=== PATIENT | female | born 1990 | race Caucasian/White ===

== ENCOUNTER 2016-10-03 07:13 | Emergency (ER) | payer MEDICAID ==
[2016-10-03 07:29] VITALS: BP 106/56
--- NOTE | 2016-10-03 07:54 | ER Document Report ---
ED Respiratory Problem - General Chief Complaint: Cough Stated Complaint: COUGH Time seen by provider: 07:49 Mode of Arrival: Ambulatory Information source: Patient, Parent Notes: 26 yo female presents to ed for productive cough for over a week, Denies fever but has been sweating exhausted. TRAVEL OUTSIDE OF THE [place] IN LAST 30 DAYS: No - HPI Patient complains to provider of: Cough Onset: Other - couple weeks Duration: Continuous Initiating Event: URI Quality of pain: No pain Severity: Moderate Pain Level: 3 Short of Breath: Mild Cough: Productive Sputum amount: Moderate Sputum color: Yellow Sputum consistency: Thick, Thin Associated symptoms: Cough, Hoarseness, PND Similar symptoms previously: Yes Recently seen / treated by doctor: No - Related Data Allergies/Adverse Reactions: No Known Allergies Allergy (Verified 10/03/16 07:24) Past Medical History - General Information source: Patient Last Menstrual Period: 09/25/16 - Social History Smoking Status: Current Every Day Smoker Cigarette use (# per day): Yes - 1/2 ppd Chew tobacco use (# tins/day): No Smoking Education Provided: Yes - less than a min Frequency of alcohol use: Social Drug Abuse: Cocaine, Other - methadone Lives with: Family Family History: Reviewed & Not Pertinent Patient has suicidal ideation: No Patient has homicidal ideation: No - Past Medical History Cardiac Medical History: Reports: None Pulmonary Medical History: Reports: None EENT Medical History: Reports: None Neurological Medical History: Reports: None Endocrine Medical History: Reports: None Renal/ Medical History: Reports: None Malignancy Medical History: Reports: None GI Medical History: Reports: None Musculoskeltal Medical History: Reports None Skin Medical History: Reports None Psychiatric Medical History: Reports: None Traumatic Medical History: Reports: None Infectious Medical History: Reports: None Past Surgical History: Reports: Hx Breast Surgery - reduction - Immunizations Hx Diphtheria, Pertussis, Tetanus Vaccination: No Review of Systems - Review of Systems Constitutional: Malaise, Recent illness. denies: Fever EENT: Sinus discharge, Other - hoarseness Cardiovascular: No symptoms reported Respiratory: Cough, Sputum - thick yellow Gastrointestinal: No symptoms reported Genitourinary: No symptoms reported Female Genitourinary: No symptoms reported Musculoskeletal: No symptoms reported Skin: No symptoms reported Hematologic/Lymphatic: No symptoms reported Neurological/Psychological: No symptoms reported -: Yes All other systems reviewed and negative Physical Exam - Vital signs Vitals: Temp Pulse Resp BP Pulse Ox 98.4 F 93 18 106/56 L 96 10/03/16 07:28 10/03/16 07:28 10/03/16 07:28 10/03/16 07:28 10/03/16 07:28 Interpretation: Normal - General General appearance: Appears well, Alert - HEENT Head: Normocephalic, Atraumatic Eyes: Normal Pupils: PERRL Ears: Normal External canal: Normal Tympanic membrane: Normal Sinus: Normal Nasal: Purulent discharge, Swelling Mucous membranes: Normal Pharynx: Post nasal drainage Neck: Normal - Respiratory Respiratory status: No respiratory distress Chest status: Nontender Breath sounds: Productive cough Chest palpation: Normal - Cardiovascular Rhythm: Regular Heart sounds: Normal auscultation Murmur: No - Abdominal Inspection: Normal Distension: No distension Bowel sounds: Normal Tenderness: Nontender Organomegaly: No organomegaly - Back Back: Normal, Nontender - Extremities General upper extremity: Normal inspection, Nontender, Normal color, Normal ROM , Normal temperature General lower extremity: Normal inspection, Nontender, Normal color, Normal ROM , Normal temperature, Normal weight bearing. No: Rosey's sign - Neurological Neuro grossly intact: Yes Cognition: Normal Orientation: AAOx4 Dany Coma Scale Eye Opening: Spontaneous Dany Coma Scale Verbal: Oriented Dany Coma Scale Motor: Obeys Commands [place] Coma Scale Total: 15 Speech: Normal Motor strength normal: LUE, RUE, LLE, RLE Sensory: Normal - Psychological Associated symptoms: Normal affect, Normal mood - Skin Skin Temperature: Warm Skin Moisture: Dry Skin Color: Normal Course - Re-evaluation Re-evalutation: 10/03/16 08:46 discussed xray with patient. will discharge home on augmentin as she is on Methadone - Vital Signs Vital signs: Temp Pulse Resp BP Pulse Ox 98.4 F 93 18 106/56 L 96 10/03/16 07:28 10/03/16 07:28 10/03/16 07:28 10/03/16 07:28 10/03/16 07:28 - Diagnostic Test Radiology reviewed: Image reviewed, Reports reviewed Discharge - Discharge Clinical Impression: Pneumonia Qualifiers: Pneumonia type: due to unspecified organism Laterality: bilateral Lung location : unspecified part of lung Qualified Code(s): J18.9 - Pneumonia, unspecified organism Condition: Stable Disposition: HOME, SELF-CARE Instructions: Family Physicians / Practices Additional Instructions: PNEUMONIA: Your examination indicates that you have pneumonia. This is an infection of the lung tissue, usually caused by bacteria or a virus. Symptoms include cough, fever, shaking chills, chest pain, shortness of breath, and coughing up bloody sputum. Treatment for bacterial pneumonia includes rest, antibiotics for 10 to 14 days, increasing your clear liquid intake, a cool mist humidifier at your bedside, and fever medication. Often, a repeat chest X-ray is performed in a few weeks--even if you feel better--to ascertain whether the infection has completely resolved and no underlying lung problem is present. You should call the physician if you develop persistent vomiting, high fever that does not respond to fever medication, increasing shortness of breath , confusion, or lethargy. Also, failure to improve within two to three days is an indication for re-examination. DOXYCYCLINE: Doxycycline (Vibramycin, Doryx) is an antibiotic of the tetracycline family. This type of drug is useful for infections of the respiratory tract and genital tract, and is sometimes used for intestinal infections. Unlike most tetracyclines, doxycycline can be taken with food. It is longer acting, and (usually) less prone to side effects than regular tetracycline. Tetracycline antibiotics can stain immature teeth and SHOULD NOT BE TAKEN BY CHILDREN, NURSING MOTHERS, OR WOMEN. Tetracyclines can make you more prone to sunburn. Abdominal cramping, nausea, and diarrhea are occasional side effects. Women may experience vaginal yeast infections. Call the doctor at once if you develop hives, itching, shortness of breath , or lightheadedness. USE OF ACETAMINOPHEN (Tylenol): Acetaminophen may be taken for pain relief or fever control. It's much safer than aspirin, offering a wider range of "safe" dosages. It is safe during . Some brand names are Tylenol, Panadol, Datril, Anacin 3, Tempra, and Liquiprin. Acetaminophen can be repeated every four hours. The following are maximum recommended dosages: WEIGHT Dose Drops Elixir Chewable( 80mg) (LBS.) drprs=droppers tsp=teaspoon 6 40 mg 0.4 ml (1/2) 6-11 80 mg 0.8 ml (full) tsp 1 tab 12-16 120 mg 1 1/2 drprs 3/4 tsp 1 1/2 tabs 17-23 160 mg 2 drprs 1 tsp 2 tabs 24-30 240 mg 3 drprs 1 1/2 tsp 3 tabs 30-35 320 mg 2 tsp 4 tabs 36-41 360 mg 2 1/4 tsp 4 1/2 tabs 42-47 400 mg 2 1/2 tsp 5 tabs 48-53 480 mg 3 tsp 6 tabs 54-59 520 mg 3 1/4 tsp 6 1/2 tabs 60-64 560 mg 3 1/2 tsp 7 tabs 65-70 600 mg 3 3/4 tsp 7 1/2 tabs 71-76 640 mg 4 tsp 8 tabs 77-82 720 mg 4 1/2 tsp 9 tabs 83-88 800 mg 5 tsp 10 tabs >89 pounds or adults 650 mg to 900 mg Acetaminophen can be repeated every four hours. Maximum dose not to exceed 4000 mg a day. These maximum recommended dosages are slightly higher than the dosages written on the product container, but these dosages are very safe and below the toxic dosage for acetaminophen. FOLLOW-UP CARE: If you have been referred to a physician for follow-up care, call the physician s office for an appointment as you were instructed or within the next two days. If you experience worsening or a significant change in your symptoms, notify the physician immediately or return to the Emergency Department at any time for re-evaluation. Prescriptions: Doxycycline Hyclate [Morgidox] 100 mg PO BID #20 capsule
== END 2016-10-03 09:01 | disposition home or self-care (01) ==
LOC: ER 07:13
DX: J18.9 Pneumonia, unspecified organism (principal); R05 Cough; J34.89 Other specified disorders of nose and nasal sinuses; R49.0 Dysphonia; R53.81 Other malaise; F17.210 Nicotine dependence, cigarettes, uncomplicated; Z71.6 Tobacco abuse counseling; Z79.891 Long term (current) use of opiate analgesic
CPT/HCPCS: 71020; 99283

== ENCOUNTER 2017-02-05 00:46 | Inpatient (IN) | payer SELFPAY ==
[2017-02-05] MEDS ORDERED: VANCOMYCIN HCL INJ 1000 MG VIAL IV ONE (02:37)
[2017-02-05] MEDS ORDERED: MORPHINE SULFATE 10 MG/ML INJ IV ONE (02:38)
[2017-02-05 03:05] LABS: ABSOLUTE LYMPHOCYTES (AUTO) 1.1 10^3/uL (0.5-4.7); ABSOLUTE MONOCYTES (AUTO) 0.8 10^3/uL (0.1-1.4); ABSOLUTE NEUT (AUTO) 9.1 10^3/uL (1.7-8.2); BASOPHILS % (AUTO) 0.2 % (0-2); EOSINOPHILS % (AUTO) 0.3 % (0-6); HEMATOCRIT 36.8 % (36.0-47.0); HEMOGLOBIN 12.6 g/dL (12.0-15.5); LYMPHOCYTES % (AUTO) 10.3 % (13-45); MEAN CORPUSCULAR HEMOGLOBIN 29.5 pg (27.0-33.4); MEAN CORPUSCULAR HGB CONC 34.2 g/dL (32.0-36.0); MEAN CORPUSCULAR VOLUME 86 fl (80-97); MONOCYTES % (AUTO) 7.5 % (3-13); RED BLOOD COUNT 4.26 10^6/uL (3.72-5.28); RED CELL DISTRIBUTION WIDTH 13.1 % (11.5-14.0); SEGMENTED NEUTROPHILS % (AUTO) 81.7 % (42-78); WHITE BLOOD COUNT 11.1 10^3/uL (4.0-10.5)
--- NOTE | 2017-02-05 03:13 | ER Document Report ---
ED General - General Chief Complaint: Abscess Stated Complaint: ABSCESS, FACE SWOLLEN Time Seen by Provider: 02/05/17 02:36 Notes: Patient is a 27-year-old female presents with complaint of swelling to her eyes. Patient has small abscess of her forehead which was drained at another hospital. After that she started vomiting swelling that is no spread to both eyes. Her eyes are swollen shut. No fevers. No vomiting. No diarrhea. She does have a former history of IV drug abuse but does not use IV drugs anymore. She does take methadone. No other complaints at this time. TRAVEL OUTSIDE OF THE [place] IN LAST 30 DAYS: No - Related Data Allergies/Adverse Reactions: No Known Allergies Allergy (Verified 10/03/16 07:24) Past Medical History - Social History Smoking Status: Unknown if Ever Smoked Frequency of alcohol use: None Drug Abuse: None Family History: Reviewed & Not Pertinent Renal/ Medical History: Denies: Hx Peritoneal Dialysis Past Surgical History: Reports: Hx Breast Surgery - reduction - Immunizations Hx Diphtheria, Pertussis, Tetanus Vaccination: No Review of Systems - Review of Systems Notes: My Normal Review Basic REVIEW OF SYSTEMS: CONSTITUTIONAL : Denies fever, chills, or sweats. Denies recent illness. EENT: Facial swelling. CARDIOVASCULAR: Denies chest pain. RESPIRATORY: Denies cough, cold, or chest congestion. Denies shortness of breath, difficulty breathing, or wheezing. GASTROINTESTINAL: Denies abdominal pain. Denies nausea, vomiting, or diarrhea. Denies constipation. Last BM: MUSCULOSKELETAL: Denies neck or back pain or joint pain or swelling. SKIN: Denies rash or skin lesions. NEUROLOGICAL: Denies altered mental status or loss of consciousness. Denies headache. Denies weakness or paralysis or loss of use of either side. Denies problems with gait or speech. Denies sensory or motor loss. ALL OTHER SYSTEMS REVIEWED AND NEGATIVE. Physical Exam - Vital signs Vitals: Temp Pulse Resp BP Pulse Ox 99.0 F 95 18 110/62 100 02/05/17 01:09 02/05/17 01:09 02/05/17 01:09 02/05/17 01:09 02/05/17 01:09 - Notes Notes: General Appearance: Well nourished, alert, cooperative, no acute distress, no obvious discomfort. Vitals: reviewed, See vital signs table. Head: Patient has a small abscess over the forehead that was incised and drained. She did have some redness and swelling spreading into both eyelids. Both eyelids are swollen shut. Eyes: PERRL, EOMI, Conjuctiva clear Mouth: No decreasd moisture Throat: No tonsillar inflammation, No airway obstruction, No lymphadenopathy Neck: Supple, no neck tenderness, Lungs: No wheezing, No rales, No rhonci, No accessory muscle use, good air exchange bilaterally. Heart: Normal rate, Regular rythm, No murmur, no rub Extremities: strength 5/5 in all extremities, good pulses in all extremities, no swelling or tenderness in the extremities, no edema. Skin: warm, dry, appropriate color, no rash Neuro: speech clear, oriented x 3, normal affect, responds appropriately to questions. Course - Re-evaluation Re-evalutation: 02/05/17 06:01 CT scan shows no abscess no orbital cellulitis and no abscess.. I did talk to the patient about inpatient versus outpatient treatment. I do think that she is a candidate for inpatient treatment being that she is failed some outpatient therapy and that she is had regressing swelling across her face with some erythema. Suspect this most likely is spreading cellulitis from the abscess. There is a chance always be allergic reaction to the antibiotic however I think this is less likely being that she has no itching, no swelling anywhere else, no redness or rash anywhere other than right there over her face. I did speak with the hospitalist, Dr. Desai, who agrees to admit the patient. Dictation of this chart was performed using voice recognition software; therefore, there may be some unintended grammatical errors. - Vital Signs Vital signs: Temp Pulse Resp BP Pulse Ox 99.0 F 95 18 110/62 100 02/05/17 01:09 02/05/17 01:09 02/05/17 01:09 02/05/17 01:09 02/05/17 01:09 - Laboratory Result Diagrams: 02/05/17 02:45 02/05/17 02:45 Laboratory results interpreted by me: 02/05/17 02:45 WBC 11.1 H Seg Neutrophils % 81.7 H Lymphocytes % 10.3 L Absolute Neutrophils 9.1 H Discharge - Discharge Clinical Impression: Facial cellulitis Condition: Stable Disposition: ADMITTED OBSERVATION Admitting Provider: Hospitalist Unit Admitted: Medical Floor
[2017-02-05 03:16] LABS: ANION GAP 8 (5-19); BLOOD UREA NITROGEN 10 mg/dL (7-20); CALCIUM 9.7 mg/dL (8.4-10.2); CARBON DIOXIDE 29 mmol/L (22-30); CHLORIDE 103 mmol/L (98-107); CREATININE RESULT 0.69 mg/dL (0.52-1.25); GLUCOSE 94 mg/dL (75-110); POTASSIUM 3.9 mmol/L (3.6-5.0); SODIUM 139.8 mmol/L (137-145)
--- NOTE | 2017-02-05 04:22 | RADIOLOGY REPORT (SQ) ---
EXAM DESCRIPTION: CT ORBIT/SELLA WITH COMPLETED DATE/TIME: 02/05/2017 4:06 am REASON FOR STUDY: cellulitis COMPARISON: None. TECHNIQUE: Triplanar images through the orbits windowed for bone and soft tissue. Additional rodriguez l and sagittal reconstructed images reviewed. All images stored on PACS. All CT scanners at this facility use dose modulation, iterative reconstruction, and/or weight based d osing when appropriate to reduce radiation dose to as low as reasonably achievable (ALARA). [facility]: Dose Right [facility]: CareDose [facility]: Dose Right [facility]: Teradose 4D [facility]: [employer] CONTRAST TYPE AND DOSE: contrast/concentration: Isovue 370.00 mg/ml; Total Contrast Delivered: 75.0 ml; Total Saline Delivered: 55.0 ml RENAL FUNCTION: Creatinine 0.7. RADIATION DOSE: Up-to-date CT equipment and radiation dose reduction techniques were employed. CTDIv ol: 30.4 mGy. DLP: 327 mGy-cm. . LIMITATIONS: None. FINDINGS: FACIAL BONES: No fracture or bone lesion. ORBITS: Intact. No fracture. Symmetric intact globes and retroorbital soft tissues. PARANASAL SINUSES: Clear. No significant mucosal thickening, mass or fluid. SOFT TISSUES: Moderate bilateral palpebral, periorbital, and moderate diffuse frontal scalp swelling -hematoma partially imaged. No CT evidence of acute sinusitis. INFERIOR BRAIN: Limited view. No acute findings. OTHER: No other significant finding. IMPRESSION: Moderate palpebral/periorbital and frontal scalp swelling-edema. No significant drainab le fluid collection. TECHNICAL DOCUMENTATION: JOB ID: [id number] Quality ID # [id number]: Final reports with documentation of one or more dose reduction techniques (e.g., Au tomated exposure control, adjustment of the mA and/or kV according to patient size, use of iterative reconstruction technique) 2010 [employer]- All Rights Reserved
[2017-02-05] MEDS ORDERED: METHYLPREDNISOLONE INJ 125 MG/2 ML SDV IV ONE (05:05)
[2017-02-05] MEDS ORDERED: IPRATROPIUM/ALBUTEROL 0.5-2.5 MG/3 ML AMPUL NEB PRN (05:55)
[2017-02-05] MEDS ORDERED: MAG HYDROX/AL HYDROX/SIMETH SUSP 30 ML UDCUP PO PRN (05:55)
[2017-02-05] MEDS ORDERED: ACETAMINOPHEN 325 MG TABLET PO PRN (05:55)
[2017-02-05] MEDS ORDERED: CEFTRIAXONE SODIUM 1,500 MG in DEXTROSE 5%-WATER 100 ML IV SCH (06:00)
[2017-02-05] MEDS ORDERED: VANCOMYCIN HCL 1 MG in DEXTROSE 5%-WATER 250 ML IV NR (06:00)
[2017-02-05] MEDS ORDERED: VANCOMYCIN HCL 1,000 MG in DEXTROSE 5%-WATER 250 ML IV ONE (06:15)
[2017-02-05] MEDS ORDERED: VANCOMYCIN HCL INJ 1000 MG VIAL IV PRN (06:15)
[2017-02-05] MEDS ORDERED: METHADONE HCL 10 MG TABLET PO ONE ×2 (06:31→16:30)
[2017-02-05] MEDS: HEPARIN SOD (PORCINE) 5,000 UNIT/ML 1 ML SYRINGE SUBCUT SCH ×3 (06:42→22:28)
--- NOTE | 2017-02-05 06:44 | PDOC H&P ---
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 She has had subsequent rapid worsening of swelling of the face and eyelids bilaterally and in acute methadone withdrawal currently. CT of the orbit are negative for cellulitis or abscess. She started on IV vancomycin referred to the hospitalist for admission. She denies previous MRSA. Past Medical History Cardiac Medical History: Reports: None Pulmonary Medical History: Reports: None EENT Medical History: Reports: None Neurological Medical History: Reports: None Endocrine Medical History: Reports: None Renal/ Medical History: Reports: None Malignancy Medical History: Reports: None GI Medical History: Reports: None Musculoskeltal Medical History: Reports: None Skin Medical History: Reports: None Psychiatric Medical History: Reports: Substance Abuse, Tobacco Dependency Social History Information Source: Patient Smoking Status: Unknown if Ever Smoked Frequency of Alcohol Use: Occasional Hx Recreational Drug Use: Yes Drugs: Heroin - Advance Directive Resuscitation Status: Full Code Family History Family History: Hypertension Parental Family History Reviewed: Yes Children Family History Reviewed: Yes Sibling(s) Family History Reviewed.: Yes Medication/Allergy Home Medications: Methadone HCl [Methadone Oral Soln 1Mg/ml 30 ml Bottle] 120 mg PO DAILY Cephalexin Monohydrate [Keflex 500 mg Capsule] 500 mg PO BID #20 capsule Loratadine [Claritin 10 Mg Tablet] 10 mg PO DAILY #30 tablet 02/29/16 Doxycycline Hyclate [Morgidox] 100 mg PO BID #20 capsule 10/03/16 Allergies/Adverse Reactions: No Known Allergies Allergy (Verified 10/03/16 07:24) Review of Systems Constitutional: ABSENT: chills, fever(s), headache(s), weight gain, weight loss Eyes: ABSENT: visual disturbances Ears: ABSENT: hearing changes Cardiovascular: ABSENT: chest pain, dyspnea on exertion, edema, orthropnea, palpitations Respiratory: ABSENT: cough, hemoptysis Gastrointestinal: ABSENT: abdominal pain, constipation, diarrhea, hematemesis, hematochezia, nausea, vomiting Genitourinary: ABSENT: dysuria, hematuria Musculoskeletal: ABSENT: joint swelling Integumentary: ABSENT: rash, wounds Neurological: ABSENT: abnormal gait, abnormal speech, confusion, dizziness, focal weakness, syncope Psychiatric: ABSENT: anxiety, depression, homidical ideation, suicidal ideation Endocrine: ABSENT: cold intolerance, heat intolerance, polydipsia, polyuria Hematologic/Lymphatic: ABSENT: easy bleeding, easy bruising Physical Exam Vital Signs: Temp Pulse Resp BP Pulse Ox 99.0 F 95 18 110/62 100 02/05/17 01:09 02/05/17 01:09 02/05/17 01:09 02/05/17 01:09 02/05/17 01:09 General appearance: PRESENT: cooperative, disheveled, mild distress, thin Head exam: PRESENT: atraumatic, normocephalic, other Head Image: 1 - edema and erythema 2 - 0.5 cm incision without drainage Eye exam: PRESENT: EOMI, periorbital swelling, PERRLA Ear exam: PRESENT: normal external ear exam Mouth exam: PRESENT: moist, tongue midline Neck exam: ABSENT: carotid bruit, JVD, lymphadenopathy, thyromegaly Respiratory exam: PRESENT: clear to auscultation lazarus. ABSENT: rales, rhonchi, wheezes Cardiovascular exam: PRESENT: RRR. ABSENT: diastolic murmur, rubs, systolic murmur Pulses: PRESENT: normal dorsalis pedis pul Vascular exam: PRESENT: normal capillary refill GI/Abdominal exam: PRESENT: normal bowel sounds, soft. ABSENT: distended, guarding, mass, organolmegaly, rebound, tenderness Rectal exam: PRESENT: deferred Extremities exam: PRESENT: full ROM. ABSENT: calf tenderness, clubbing, pedal edema Neurological exam: PRESENT: alert, awake, oriented to person, oriented to place , oriented to time, oriented to situation, CN II-XII grossly intact. ABSENT: motor sensory deficit Psychiatric exam: PRESENT: anxious, other - Diaphoretic and anxious Skin exam: PRESENT: dry, intact, warm. ABSENT: cyanosis, rash Results Impressions: Orbit CT 02/05/17 02:36 IMPRESSION: Moderate palpebral/periorbital and frontal scalp swelling-edema. No significant drainable fluid collection. Assessment & Plan - Diagnosis (1) Facial cellulitis Is this a current diagnosis for this admission?: Yes Plan: CT without evidence of orbital cellulitis or abscess. Blood cultures obtained empiric coverage for MRSA with vancomycin, Rocephin for broad coverage ordered follow-up CBC and culture (2) Methadone withdrawal Is this a current diagnosis for this admission?: Yes Plan: Patient unknown to me methadone history unobtainable stating 120 mg daily will initiate 60 mg now and reevaluate (3) Facial pain Is this a current diagnosis for this admission?: Yes Plan: Toradol as needed. - Time Time Spent: 30 to 50 Minutes - Inpatient Certification Medical Necessity: Need Close Monitoring Due to Risk of Patient Decompensation
[2017-02-05] MEDS ORDERED: CEFTRIAXONE INJ 1000 MG VIAL ONE (06:56)
[2017-02-05] MEDS: DOCUSATE SODIUM 100 MG CAPSULE PO SCH ×2 (11:40→17:23)
[2017-02-05] MEDS: NORMAL SALINE 1000 ML 1,000 ML IV SCH ×2 (11:42→15:21)
[2017-02-05] MEDS: VANCOMYCIN HCL 750 MG in DEXTROSE 5%-WATER 250 ML IV SCH (17:24)
[2017-02-05] MEDS: ACETAMINOPHEN 325 MG TABLET PO PRN (19:56)
[2017-02-06] MEDS: KETOROLAC TROMETHAMINE INJ/PF 30 MG/1 ML SDV IV PRN ×4 (03:34→23:11)
[2017-02-06] MEDS: VANCOMYCIN HCL 750 MG in DEXTROSE 5%-WATER 250 ML IV SCH ×2 (05:47→17:40)
[2017-02-06] MEDS: HEPARIN SOD (PORCINE) 5,000 UNIT/ML 1 ML SYRINGE SUBCUT SCH ×3 (05:50→22:33)
[2017-02-06 07:30] LABS: ABSOLUTE LYMPHOCYTES (AUTO) 2.1 10^3/uL (0.5-4.7); ABSOLUTE MONOCYTES (AUTO) 0.8 10^3/uL (0.1-1.4); ABSOLUTE NEUT (AUTO) 8.8 10^3/uL (1.7-8.2); BASOPHILS % (AUTO) 0.2 % (0-2); EOSINOPHILS % (AUTO) 0.2 % (0-6); HEMATOCRIT 33.8 % (36.0-47.0); HEMOGLOBIN 11.3 g/dL (12.0-15.5); HGB HCT DIFFERENCE 0.1; LYMPHOCYTES % (AUTO) 17.9 % (13-45); MEAN CORPUSCULAR HEMOGLOBIN 29.6 pg (27.0-33.4); MEAN CORPUSCULAR HGB CONC 33.6 g/dL (32.0-36.0); MEAN CORPUSCULAR VOLUME 88 fl (80-97); MONOCYTES % (AUTO) 6.8 % (3-13); RED BLOOD COUNT 3.84 10^6/uL (3.72-5.28); RED CELL DISTRIBUTION WIDTH 13.1 % (11.5-14.0); SEGMENTED NEUTROPHILS % (AUTO) 74.9 % (42-78); WHITE BLOOD COUNT 11.7 10^3/uL (4.0-10.5)
[2017-02-06 07:38] LABS: ANION GAP 8 (5-19); BLOOD UREA NITROGEN 13 mg/dL (7-20); CALCIUM 9.5 mg/dL (8.4-10.2); CARBON DIOXIDE 25 mmol/L (22-30); CHLORIDE 106 mmol/L (98-107); CREATININE RESULT 0.64 mg/dL (0.52-1.25); GLUCOSE 104 mg/dL (75-110); POTASSIUM 3.6 mmol/L (3.6-5.0); SODIUM 139.3 mmol/L (137-145)
[2017-02-06] MEDS: DOCUSATE SODIUM 100 MG CAPSULE PO SCH ×2 (07:56→19:09)
[2017-02-06] MEDS: CEFTRIAXONE SODIUM 1,500 MG in DEXTROSE 5%-WATER 100 ML IV SCH (08:04)
[2017-02-06] MEDS: METHADONE HCL 10 MG TABLET PO SCH (08:05)
[2017-02-06] MEDS: CLINDAMYCIN 600 MG/D5W RTU 600 MG/50 ML RTUPB IV SCH ×2 (09:25→19:09)
[2017-02-06] MEDS ORDERED: METHADONE HCL 1 MG/ML 30 ML BOTTLE PO SCH (10:00)
--- NOTE | 2017-02-06 10:58 | PDOC PROGRESS REPORT ---
Subjective Progress Note for:: 02/06/17 Subjective:: Pt states that she would like to have her methadone increased today. Pt states that she missed 2 of her appointments with pain management and they reduced her dose. Pt states that she is concerned that she will start having withdrawal. Pt states that her face feels about the same. Physical Exam Vital Signs: Temp Pulse Resp BP Pulse Ox 98.2 F 57 L 16 107/57 L 98 02/06/17 07:48 02/06/17 09:59 02/06/17 09:59 02/06/17 07:48 02/06/17 09:59 Intake & Output 02/05/17 02/06/17 02/07/17 06:59 06:59 06:59 Intake Total 3350 Output Total 2200 Balance 1150 Weight 55.2 kg General appearance: PRESENT: no acute distress, cooperative, thin, well- developed Head exam: PRESENT: other - Pt with facial swelling with forehead scab. Left eyelid swollen. Eye exam: PRESENT: periorbital swelling Ear exam: PRESENT: normal external ear exam Mouth exam: PRESENT: moist, tongue midline Neck exam: ABSENT: carotid bruit, JVD, lymphadenopathy, thyromegaly Respiratory exam: PRESENT: clear to auscultation lazarus. ABSENT: rales, rhonchi, wheezes Cardiovascular exam: PRESENT: RRR. ABSENT: diastolic murmur, rubs, systolic murmur Vascular exam: PRESENT: normal capillary refill GI/Abdominal exam: PRESENT: normal bowel sounds, soft. ABSENT: distended, guarding, mass, organolmegaly, rebound, tenderness Extremities exam: PRESENT: full ROM. ABSENT: calf tenderness, clubbing, pedal edema Neurological exam: PRESENT: alert, awake, oriented to person, oriented to place , oriented to time, oriented to situation, CN II-XII grossly intact. ABSENT: motor sensory deficit Psychiatric exam: PRESENT: appropriate affect, normal mood. ABSENT: homicidal ideation, suicidal ideation Skin exam: PRESENT: other - Forehead scab with left upper eyelid swelling. Results Laboratory Results: 02/06/17 06:38 02/06/17 06:38 02/06/17 02/06/17 06:38 06:38 WBC 11.7 H RBC 3.84 Hgb 11.3 L Hct 33.8 L MCV 88 MCH 29.6 MCHC 33.6 RDW 13.1 Plt Count 183 Seg Neutrophils % 74.9 Lymphocytes % 17.9 Monocytes % 6.8 Eosinophils % 0.2 Basophils % 0.2 Absolute Neutrophils 8.8 H Absolute Lymphocytes 2.1 Absolute Monocytes 0.8 Absolute Eosinophils 0.0 Absolute Basophils 0.0 Sodium 139.3 Potassium 3.6 Chloride 106 Carbon Dioxide 25 Anion Gap 8 BUN 13 Creatinine 0.64 Est GFR ( Amer) > 60 Est GFR (Non-Af Amer) > 60 Glucose 104 Calcium 9.5 Impressions: Orbit CT 02/05/17 02:36 IMPRESSION: Moderate palpebral/periorbital and frontal scalp swelling-edema. No significant drainable fluid collection. Assessment & Plan - Diagnosis (1) Facial cellulitis Is this a current diagnosis for this admission?: Yes Plan: Suspect MRSA: We will order wound culture. Will add clindamycin to see if this will help decrease swelling due to the properties of clindamycin binding toxins. We will continue vancomycin and Rocephin. (2) Methadone dependence Is this a current diagnosis for this admission?: Yes Plan: Patient's methadone clinic was contacted and they reported the patient was taken 77 mg p.o. daily. Patient has been dosed here at 75 mg p.o. daily due to our pharmacy not having liquid solution. (3) Facial pain Is this a current diagnosis for this admission?: Yes Plan: We will continue patient's methadone and Tylenol as needed. (4) DVT prophylaxis Is this a current diagnosis for this admission?: Yes Plan: Heparin - Time Time Spent with patient: 15-24 minutes
[2017-02-07] MEDS: ACETAMINOPHEN 325 MG TABLET PO PRN ×2 (03:17→18:29)
[2017-02-07] MEDS: CLINDAMYCIN 600 MG/D5W RTU 600 MG/50 ML RTUPB IV SCH ×3 (03:18→17:14)
[2017-02-07] MEDS: VANCOMYCIN HCL 750 MG in DEXTROSE 5%-WATER 250 ML IV SCH (05:43)
[2017-02-07] MEDS: HEPARIN SOD (PORCINE) 5,000 UNIT/ML 1 ML SYRINGE SUBCUT SCH ×3 (05:44→21:59)
[2017-02-07 05:49] LABS: ABSOLUTE LYMPHOCYTES (AUTO) 2.2 10^3/uL (0.5-4.7); ABSOLUTE MONOCYTES (AUTO) 0.7 10^3/uL (0.1-1.4); ABSOLUTE NEUT (AUTO) 4.7 10^3/uL (1.7-8.2); BASOPHILS % (AUTO) 0.4 % (0-2); EOSINOPHILS % (AUTO) 0.6 % (0-6); HEMATOCRIT 31.8 % (36.0-47.0); HEMOGLOBIN 10.9 g/dL (12.0-15.5); HGB HCT DIFFERENCE 0.9; LYMPHOCYTES % (AUTO) 29.1 % (13-45); MEAN CORPUSCULAR HEMOGLOBIN 29.8 pg (27.0-33.4); MEAN CORPUSCULAR HGB CONC 34.2 g/dL (32.0-36.0); MEAN CORPUSCULAR VOLUME 87 fl (80-97); MONOCYTES % (AUTO) 9.2 % (3-13); RED BLOOD COUNT 3.65 10^6/uL (3.72-5.28); RED CELL DISTRIBUTION WIDTH 13.3 % (11.5-14.0); SEGMENTED NEUTROPHILS % (AUTO) 60.7 % (42-78); WHITE BLOOD COUNT 7.7 10^3/uL (4.0-10.5)
[2017-02-07] MEDS ORDERED: KETOROLAC TROMETHAMINE 60 MG/2 ML SDV ONE (06:05)
[2017-02-07] MEDS ORDERED: KETOROLAC TROMETHAMINE INJ/PF 30 MG/1 ML SDV ONE (06:12)
[2017-02-07 06:13] LABS: ALANINE AMINOTRANSFERASE 26 U/L (9-52); ALKALINE PHOSPHATASE 35 U/L (38-126); ANION GAP 6 (5-19); ASPARTATE AMINO TRANSFERASE 16 U/L (14-36); BILIRUBIN,DIRECT 0.2 mg/dL (0.0-0.4); BILIRUBIN,TOTAL 0.2 mg/dL (0.2-1.3); BLOOD UREA NITROGEN 16 mg/dL (7-20); CARBON DIOXIDE 27 mmol/L (22-30); CHLORIDE 105 mmol/L (98-107); CREATININE RESULT 0.84 mg/dL (0.52-1.25); GLUCOSE 86 mg/dL (75-110); POTASSIUM 3.8 mmol/L (3.6-5.0); SODIUM 138.2 mmol/L (137-145); TOTAL PROTEIN 5.4 g/dL (6.3-8.2)
[2017-02-07] MEDS: METHADONE HCL 10 MG TABLET PO SCH (08:12)
[2017-02-07] MEDS: KETOROLAC TROMETHAMINE INJ/PF 30 MG/1 ML SDV IV PRN ×3 (08:13→22:03)
[2017-02-07] MEDS: DOCUSATE SODIUM 100 MG CAPSULE PO SCH ×2 (10:28→17:14)
[2017-02-07] MEDS: CEFTRIAXONE SODIUM 1,500 MG in DEXTROSE 5%-WATER 100 ML IV SCH (11:31)
--- NOTE | 2017-02-07 15:08 | PDOC PROGRESS REPORT ---
Subjective Progress Note for:: 02/07/17 Subjective:: Patient states that facial swelling has greatly decreased. Patient states that she has been applying an ice pack to face. Patient states that Toradol has been helping greatly with facial pain. Physical Exam Vital Signs: Temp Pulse Resp BP Pulse Ox 98.5 F 64 16 85/45 L 98 02/07/17 11:48 02/07/17 11:48 02/07/17 11:48 02/07/17 11:48 02/07/17 11:48 Intake & Output 02/06/17 02/07/17 02/08/17 06:59 06:59 06:59 Intake Total 3350 700 Output Total 2200 Balance 1150 700 Weight 55.2 kg 55.4 kg General appearance: PRESENT: no acute distress, well-developed, well-nourished Eye exam: PRESENT: other - Left eyelid swelling greatly decreased facial swelling diffusely has decreased Mouth exam: PRESENT: moist, tongue midline Neck exam: ABSENT: carotid bruit, JVD, lymphadenopathy, thyromegaly Respiratory exam: PRESENT: clear to auscultation lazarus. ABSENT: rales, rhonchi, wheezes Cardiovascular exam: PRESENT: RRR. ABSENT: diastolic murmur, rubs, systolic murmur Pulses: PRESENT: normal dorsalis pedis pul GI/Abdominal exam: PRESENT: normal bowel sounds, soft. ABSENT: distended, guarding, mass, organolmegaly, rebound, tenderness Extremities exam: PRESENT: full ROM. ABSENT: calf tenderness, clubbing, pedal edema Neurological exam: PRESENT: alert, awake, oriented to person, oriented to place , oriented to time, oriented to situation, CN II-XII grossly intact. ABSENT: motor sensory deficit Psychiatric exam: PRESENT: appropriate affect, normal mood. ABSENT: homicidal ideation, suicidal ideation Skin exam: PRESENT: other - Patient with dry scab noted on forehead no purulent drainage noted Results Laboratory Results: 02/07/17 05:33 02/07/17 05:33 02/07/17 02/07/17 05:33 05:33 WBC 7.7 RBC 3.65 L Hgb 10.9 L Hct 31.8 L MCV 87 MCH 29.8 MCHC 34.2 RDW 13.3 Plt Count 168 Seg Neutrophils % 60.7 Lymphocytes % 29.1 Monocytes % 9.2 Eosinophils % 0.6 Basophils % 0.4 Absolute Neutrophils 4.7 Absolute Lymphocytes 2.2 Absolute Monocytes 0.7 Absolute Eosinophils 0.0 Absolute Basophils 0.0 Sodium 138.2 Potassium 3.8 Chloride 105 Carbon Dioxide 27 Anion Gap 6 BUN 16 Creatinine 0.84 Est GFR ( Amer) > 60 Est GFR (Non-Af Amer) > 60 Glucose 86 Calcium 9.0 Total Bilirubin 0.2 AST 16 ALT 26 Alkaline Phosphatase 35 L Total Protein 5.4 L Albumin 3.0 L 02/06/17 08:15 Nasophary (Mrsa Only) MRSA Surveillance Culture - Final NO MRSA RECOVERED Impressions: Orbit CT 02/05/17 02:36 IMPRESSION: Moderate palpebral/periorbital and frontal scalp swelling-edema. No significant drainable fluid collection. Assessment & Plan - Diagnosis (1) Facial cellulitis Is this a current diagnosis for this admission?: Yes Plan: Suspect MRSA: Patient's MRSA screening as well as wound culture have resulted no growth however patient had received antibiotics prior to these cultures being obtained. Will continue with current antibiotic regimen. She most likely can be discharged home tomorrow on clindamycin p.o. for 10 days. (2) Methadone dependence Is this a current diagnosis for this admission?: Yes Plan: Patient's methadone clinic was contacted and they reported the patient was taken 77 mg p.o. daily. Patient has been dosed here at 75 mg p.o. daily due to our pharmacy not having liquid solution. (3) Facial pain Is this a current diagnosis for this admission?: Yes Plan: We will continue patient's methadone and tramadol as needed. (4) DVT prophylaxis Is this a current diagnosis for this admission?: Yes Plan: Heparin - Time Time Spent with patient: Less than 15 minutes Anticipated discharge: Home - Patient most likely able to be discharged home tomorrow on clindamycin for 10 days.
[2017-02-07] MEDS: VANCOMYCIN HCL 1,000 MG in DEXTROSE 5%-WATER 250 ML IV SCH (18:22)
[2017-02-08] MEDS: CLINDAMYCIN 600 MG/D5W RTU 600 MG/50 ML RTUPB IV SCH ×2 (03:21→09:40)
[2017-02-08] MEDS: VANCOMYCIN HCL 1,000 MG in DEXTROSE 5%-WATER 250 ML IV SCH (05:21)
[2017-02-08] MEDS: HEPARIN SOD (PORCINE) 5,000 UNIT/ML 1 ML SYRINGE SUBCUT SCH ×2 (05:21→13:38)
[2017-02-08 07:10] LABS: ANION GAP 8 (5-19); BLOOD UREA NITROGEN 12 mg/dL (7-20); CALCIUM 8.9 mg/dL (8.4-10.2); CARBON DIOXIDE 26 mmol/L (22-30); CHLORIDE 102 mmol/L (98-107); CREATININE RESULT 0.65 mg/dL (0.52-1.25); GLUCOSE 109 mg/dL (75-110); POTASSIUM 3.7 mmol/L (3.6-5.0); SODIUM 136.4 mmol/L (137-145)
[2017-02-08] MEDS: METHADONE HCL 10 MG TABLET PO SCH (07:29)
[2017-02-08] MEDS: KETOROLAC TROMETHAMINE INJ/PF 30 MG/1 ML SDV IV PRN (09:39)
[2017-02-08] MEDS: DOCUSATE SODIUM 100 MG CAPSULE PO SCH (09:40)
[2017-02-08] MEDS: CEFTRIAXONE SODIUM 1,500 MG in DEXTROSE 5%-WATER 100 ML IV SCH (11:23)
[2017-02-08 11:45] VITALS: BP 95/51
--- NOTE | 2017-02-08 15:47 | PDOC DISCHARGE SUMMARY ---
General - Admit/Disc Date/PCP Admission Date/Primary Care Provider: 02/05/17 06:08 Discharge Date: 02/08/17 - Discharge Diagnosis (1) Methadone dependence Is this a current diagnosis for this admission?: Yes (3) Facial cellulitis Is this a current diagnosis for this admission?: Yes (4) Facial pain Is this a current diagnosis for this admission?: Yes - Additional Information Resuscitation Status: Full Code Discharge Diet: Regular Discharge Activity: Activity As Tolerated Home Medications: Methadone HCl [Methadone Oral Soln 1Mg/ml 30 ml Bottle] 77 mg PO DAILY 02/05/17 Clindamycin HCl [Cleocin HCl] 300 mg PO Q6 10 Days capsule 02/08/17 Ibuprofen [Motrin 800 mg Tablet] 800 mg PO Q8H PRN #30 tab 02/08/17 History of Present Illness History of Present Illness: JOHN BANEGAS is a 27 year old female Physical Exam Vital Signs: Temp Pulse Resp BP Pulse Ox 100.3 F 102 H 17 95/51 L 100 02/08/17 11:43 02/08/17 11:43 02/08/17 11:43 02/08/17 11:43 02/08/17 11:43 Intake & Output 02/07/17 02/08/17 02/09/17 06:59 06:59 06:59 Intake Total 700 850 Balance 700 850 Weight 55.4 kg 63.1 kg Results Laboratory Results: 02/07/17 05:33 02/08/17 06:45 02/08/17 06:45 Sodium 136.4 L Potassium 3.7 Chloride 102 Carbon Dioxide 26 Anion Gap 8 BUN 12 Creatinine 0.65 Est GFR ( Amer) > 60 Est GFR (Non-Af Amer) > 60 Glucose 109 Calcium 8.9 02/06/17 08:15 Face - Forehead Gram Stain - Final Impressions: Orbit CT 02/05/17 02:36 IMPRESSION: Moderate palpebral/periorbital and frontal scalp swelling-edema. No significant drainable fluid collection. Qualifiers PATEINT BEING DISCHARGED WITH ANY OF THE FOLLOWING DIAGNOSIS?: No
--- NOTE | 2017-02-08 18:12 | DISCHARGE SUMMARY E ---
Discharge Summary NAME: JOHN BANEGAS : 1990 AGE: 27Y ADMITTED: 02/05/2017 DISCHARGED: 02/08/2017 FINAL DIAGNOSES: 1. Facial cellulitis. 2. Facial pain. 3. Methadone dependence. CONSULTATIONS: None. PROCEDURE DONE ON THIS ADMISSION: CT orbit which demonstrated moderate palpebral, periorbital and frontal scalp swelling. No significant drainable fluid. HISTORY OF PRESENT ILLNESS: History and physical dictated by Dr. Sandoval Desai. The patient is a 27-year-old female with a past medical history of IV heroin abuse, last used in 2011, currently on methadone and tobacco. Has been doing well until 72 hours prior to the developing abscess on the forehead with subsequent I and D approximately 48 hours ago at urgent care and was placed on Keflex. The patient presented to [facility] with worsening symptoms and was started on IV vancomycin. CT orbit was negative for cellulitis or abscess. HOSPITAL COURSE: 1. Facial cellulitis. The patient had a CT scan done to rule out any underlying abscess or cellulitis. This was negative. The patient was started on vancomycin for MRSA coverage and Rocephin for broad coverage. The patient was later on started on clindamycin. The patient showed significant improvement. 2. Facial pain. The patient was having facial pain due to the swelling. The patient responded well to Toradol as needed. 3. Methadone use. The patient is currently on methadone in place of her heroin addiction which she no longer uses heroin. PHYSICAL EXAMINATION: VITAL SIGNS: The patient had a low grade temperature of 100.3 and pulse of 102, blood pressure 95/51, respirations 17, saturating 100%. The patient's pain level was 3. GENERAL: No acute distress. HEENT: Normocephalic. She does have a scab in the middle of her forehead with slight erythema over the left eye. Swelling significantly improved. Extraocular movements are intact. NECK: Supple. LUNGS: Clear to auscultation bilaterally. HEART: S1,S2. No murmurs or gallops. ABDOMEN: Soft, nontender and nondistended. Bowel sounds heard. EXTREMITIES: No deformity or pedal edema. LABORATORY DATA: White count 7.7, hemoglobin 10.9, hematocrit 31.8, platelets 168. Chemistries: Sodium 136, potassium 3.7, chloride 102, carbon dioxide 26, anion gap 8, BUN 12, creatinine 0.65, calcium 8.9, glucose 109. Urine test was negative. INTERIM SUMMARY: The patient states she feels significantly better. There is some pain but Toradol works quite well for her. The patient denies any diarrhea or abdominal pain. The patient states that she is actually somewhat constipated due to the fact that she is on methadone but has had a bowel movement during this admission. DISCHARGE INSTRUCTIONS: The patient is being discharged home to complete a course of antibiotics, clindamycin. The patient should also follow up at the clinic in 2 weeks, which was scheduled. The patient advised to complete the antibiotic course to make sure that the cellulitis is completely treated. The patient has a work excuse given to her to return on Sunday. DISCHARGE MEDICATIONS: Clindamycin 300 mg every 6 hours for 10 days. The patient advised that this medication may cause diarrhea or GI upset. Motrin 800 t.i.d. as needed for pain, #30, to be taken with meals. Methadone home dose This discharge took 25 minutes to complete. DICTATING PHYSICIAN: JUVE MORTON M.D. [id number] PHY#: [id number] ID: [id number] JOB#: [id number] ACCT: [id number] cc:SANDOVAL DESAI M.D., NADIA M.D. > MTDD
== END 2017-02-08 14:00 | disposition home or self-care (01) | DRG 603 ==
LOC: ER 00:46 → EH 05:55 → OBSVTOIN 06:08 → UNDOADMOB 06:08 → INTOOBSV 06:08 → EH 06:08 → 2N 08:00 → 4N 02-08 04:27
PROVIDERS: ADMIT Internal Medicine; ATTEND Internal Medicine
DX: L03.211 Cellulitis of face (principal); L02.01 Cutaneous abscess of face; F11.20 Opioid dependence, uncomplicated; F17.200 Nicotine dependence, unspecified, uncomplicated; Z82.49 Family history of ischemic heart disease and other diseases of the circulatory system
CPT/HCPCS: 36415; 70481; 80048; 80053; 80202; 84703; 85025; 87040; 87070; 87077; 87186; 87205; 96365; 96366; 96375; 99284; J0696; J1644; J1885; J2270; J2930; J3370; J7030; J7060

== ENCOUNTER → 2017-05-24 | Outpatient (CLI) | payer SELFPAY ==
--- NOTE | 2017-05-24 14:43 | RADIOLOGY REPORT (SQ) ---
EXAM DESCRIPTION: U/S OB 14+ TRNABD 1GES W/O DOP; U/S 88728 + EACH ADDIT GEST COMPLETED DATE/TIME: 05/24/2017 12:49 pm REASON FOR STUDY: ENCOUNTER FOR SUPERVISION OF OTHER NORMAL 2ND TRIMESTER (Z34.82); TWIN P REGNANCY Z34.82 ENCOUNTER FOR SUPRVSN OF NORMAL , SECOND TRI COMPARISON: none TECHNIQUE: Transabdominal static and realtime grayscale images acquired of the pelvis. Additional se lected spectral and color Doppler images recorded. All images stored on PACs. LIMITATIONS: none FINDINGS: Twin Intra-uterine gestation TYPE OF TWIN: Dichorionic Diamniotic. Two gestation sacs. TWIN A: EGA: 13 week 2 day. BONIFACIO: 11/27/2017. FHR: 153 bpm TWIN B: EGA: 14 week 1 day. BONIFACIO: 11/21/2017. FHR: 141 bpm UTERUS: No masses. No anomalies. CERVICAL LENGTH: 3.6 cm. Closed. RIGHT ADNEXA: Ovary not identified. No adnexal free fluid. No adnexal masses. LEFT ADNEXA: Ovary not identified. No adnexal free fluid. No adnexal masses. FREE FLUID: None. OTHER: No other significant finding. IMPRESSION: LIVING TWIN INTRAUTERINE TWIN A EGA: 13 WEEK 2 DAY. TWIN B EGA: 14 WEEK 1 DAY. Trimester of : Second trimester -13 weeks 1 day to 27 weeks 6 days. TECHNICAL DOCUMENTATION: JOB ID: [id number] [employer]- All Rights Reserved
--- NOTE | 2017-05-24 14:43 | RADIOLOGY REPORT (SQ) ---
EXAM DESCRIPTION: U/S OB 14+ TRNABD 1GES W/O DOP; U/S 06013 + EACH ADDIT GEST COMPLETED DATE/TIME: 05/24/2017 12:49 pm REASON FOR STUDY: ENCOUNTER FOR SUPERVISION OF OTHER NORMAL 2ND TRIMESTER (Z34.82); TWIN P REGNANCY Z34.82 ENCOUNTER FOR SUPRVSN OF NORMAL , SECOND TRI COMPARISON: none TECHNIQUE: Transabdominal static and realtime grayscale images acquired of the pelvis. Additional se lected spectral and color Doppler images recorded. All images stored on PACs. LIMITATIONS: none FINDINGS: Twin Intra-uterine gestation TYPE OF TWIN: Dichorionic Diamniotic. Two gestation sacs. TWIN A: EGA: 13 week 2 day. BONIFACIO: 11/27/2017. FHR: 153 bpm TWIN B: EGA: 14 week 1 day. BONIFACIO: 11/21/2017. FHR: 141 bpm UTERUS: No masses. No anomalies. CERVICAL LENGTH: 3.6 cm. Closed. RIGHT ADNEXA: Ovary not identified. No adnexal free fluid. No adnexal masses. LEFT ADNEXA: Ovary not identified. No adnexal free fluid. No adnexal masses. FREE FLUID: None. OTHER: No other significant finding. IMPRESSION: LIVING TWIN INTRAUTERINE TWIN A EGA: 13 WEEK 2 DAY. TWIN B EGA: 14 WEEK 1 DAY. Trimester of : Second trimester -13 weeks 1 day to 27 weeks 6 days. TECHNICAL DOCUMENTATION: JOB ID: [id number] [employer]- All Rights Reserved
== END ==
LOC: RAD 11:04
PROVIDERS: ATTEND Nurse Practitioner Women's Health
DX: O30.002 Twin pregnancy, unspecified number of placenta and unspecified number of amniotic sacs, second trimester (principal); Z3A.14 14 weeks gestation of pregnancy
CPT/HCPCS: 76805; 76810

== ENCOUNTER 2017-10-18 10:53 | Outpatient (CLI) | payer MEDICAID | END 2017-10-18 11:56 | disposition home or self-care (01) | LOC: LC 10:53 | PROVIDERS: ATTEND Obstetrics & Gynecology Gynecology | PROC: 4A1HXCZ Monitoring of Products of Conception, Cardiac Rate, External Approach (ICD-10-PCS; principal; 2017-10-18) | DX: Z34.93 Encounter for supervision of normal pregnancy, unspecified, third trimester (principal) | CPT/HCPCS: 59025 ==

== ENCOUNTER 2017-10-26 11:57 | Outpatient (CLI) | payer MEDICAID ==
--- NOTE | 2017-10-26 12:02 | Non Stress Test Report ---
Non Stress Test Datetime Report Generated by CPN: 10/26/2017 12:02 DEMOGRAPHIC Test Number: 1 EGA NST: 34.2 INDICATION Indication for Study: Ordered by Provider Indication for Study (NST) Other: Methadone use VITAL SIGNS Temperature - NST: 98.0 MONITORING Monitor Explained: Monitor Explained; Test Explained; Patient Verbalized Understanding Time on Monitor: 10/18/2017 10:00 Time off Monitor: 10/18/2017 11:49 NST Duration: 109 NST INTERVENTIONS NST Interventions: None Physician Notified NST: DR MERCEDES _ P WELDON CNM REVIEWED STRIP BABY A: [id number] BABY A Movement : Present Contraction Frequency : 0 FHR Baseline : 120 Accelerations : 15X15 Decelerations : None Variability : Moderate 6-25bpm NST Review: Meets Criteria for Reactive NST NST Review and Verified By : TEE OVERTON RN NST Results: Reactive BABY B Movement: Present FHR Baseline: 130 Accelerations: 15X15 Decelerations: None Variability: Moderate 6-25bpm NST Review: Meets Criteria for Reactive NST NST Reviewed And Verified By: TEE OVERTON RN NST Results: Reactive NST REPORT Report Trigger: Send Report
--- NOTE | 2017-10-26 13:34 | Non Stress Test Report ---
Non Stress Test Datetime Report Generated by CPN: 10/26/2017 13:34 DEMOGRAPHIC EGA NST: 35.3 INDICATION Indication for Study: Decreased Movement; Ordered by Provider Indication for Study (NST) Other: nst for hx drug abuse MONITORING Monitor Explained: Monitor Explained; Test Explained; Patient Verbalized Understanding Time on Monitor: 10/26/2017 12:15 Time off Monitor: 10/26/2017 13:26 NST Duration: 71 NST INTERVENTIONS NST Interventions: PO Hydration; Reposition Patient Physician Notified NST: A Emmel CNM BABY A Movement : Present Contraction Frequency : 2-5 FHR Baseline : 125 Accelerations : 15X15 Decelerations : None Variability : Moderate 6-25bpm NST Review: Meets Criteria for Reactive NST NST Review and Verified By : Jeanette Mims RN NST Results: Reactive BABY B Movement: Present FHR Baseline: 125 Accelerations: 15X15 Decelerations: None Variability: Moderate 6-25bpm NST Review: Meets Criteria for Reactive NST NST Reviewed And Verified By: A Mims RN NST Results: Reactive NST REPORT Report Trigger: Send Report
== END 2017-10-26 13:30 | disposition home or self-care (01) ==
LOC: LC 11:57
PROVIDERS: ATTEND Obstetrics & Gynecology
PROC: 4A1HXCZ Monitoring of Products of Conception, Cardiac Rate, External Approach (ICD-10-PCS; principal; 2017-10-26)
DX: O36.8130 Decreased fetal movements, third trimester, not applicable or unspecified (principal); Z3A.35 35 weeks gestation of pregnancy
CPT/HCPCS: 59025

== ENCOUNTER → 2017-10-26 | Outpatient (CLI) | payer MEDICAID ==
--- NOTE | 2017-10-26 18:45 | EKG REPORT ---
SEVERITY:- NORMAL ECG - SINUS RHYTHM : Confirmed by: Anthony Cullen MD 26-Oct-2017 18:44:27
== END ==
LOC: OD 14:13
PROVIDERS: ATTEND Obstetrics & Gynecology
DX: O99.323 Drug use complicating pregnancy, third trimester (principal); Z3A.00 Weeks of gestation of pregnancy not specified
CPT/HCPCS: 93005; 93010

== ENCOUNTER 2017-11-02 10:59 | Outpatient (CLI) | payer MEDICAID ==
--- NOTE | 2017-11-02 12:39 | RADIOLOGY REPORT (SQ) ---
EXAM DESCRIPTION: U/S PROFILE W/O STRESS COMPLETED DATE/TIME: 11/02/2017 12:27 pm REASON FOR STUDY: nonreactive nst twins 36 weeks Methadone COMPARISON: None. TECHNIQUE: Limited fung-scale realtime and static images of the fetus to measure specified parameter s. LIMITATIONS: None. FINDINGS: TWIN . THE TWINS ARE ARBITRARILY LABELED BABY A AND BABY B. BABY A: HEART RATE: 147 beats per minute. PRESENTATION: Breech. BREATHING MOVEMENT: 2 points. MOVEMENT: 2 points. POSTURE AND TONE: 2 points. QUALITATIVE SINDY: 2 points. BABY B: HEART RATE: 124 beats per minute. PRESENTATION: Vertex. BREATHING MOVEMENT: 2 points. MOVEMENT: 2 points. POSTURE AND TONE: 2 points. QUALITATIVE SINDY: 2 points. OTHER: No other significant finding. IMPRESSION: TWIN . BIOPHYSICAL PROFILE: 01/23. Trimester of : Third - 28 weeks to delivery COMMENT: BREATHING MOVEMENTS: 2 POINTS: PRESENT 0 POINTS: ABSENT MOTION: 2 POINTS: PRESENT 0 POINTS: ABSENT TONE: 2 POINTS: PRESENT 0 POINTS: ABSENT AMNIOTIC FLUID VOLUME: 2 POINTS: LARGEST POCKET GREATER THAN 2 CM DEPTH. 0 POINTS: NO POCKET OF 2 CM. TECHNICAL DOCUMENTATION: JOB ID: [id number] [employer]- All Rights Reserved Reading location - IP/workstation name: [email or web address]
--- NOTE | 2017-11-02 12:39 | RADIOLOGY REPORT (SQ) ---
EXAM DESCRIPTION: U/S PROFILE W/O STRESS COMPLETED DATE/TIME: 11/02/2017 12:27 pm REASON FOR STUDY: nonreactive nst twins 36 weeks Methadone COMPARISON: None. TECHNIQUE: Limited fung-scale realtime and static images of the fetus to measure specified parameter s. LIMITATIONS: None. FINDINGS: TWIN . THE TWINS ARE ARBITRARILY LABELED BABY A AND BABY B. BABY A: HEART RATE: 147 beats per minute. PRESENTATION: Breech. BREATHING MOVEMENT: 2 points. MOVEMENT: 2 points. POSTURE AND TONE: 2 points. QUALITATIVE SINDY: 2 points. BABY B: HEART RATE: 124 beats per minute. PRESENTATION: Vertex. BREATHING MOVEMENT: 2 points. MOVEMENT: 2 points. POSTURE AND TONE: 2 points. QUALITATIVE SINDY: 2 points. OTHER: No other significant finding. IMPRESSION: TWIN . BIOPHYSICAL PROFILE: 01/23. Trimester of : Third - 28 weeks to delivery COMMENT: BREATHING MOVEMENTS: 2 POINTS: PRESENT 0 POINTS: ABSENT MOTION: 2 POINTS: PRESENT 0 POINTS: ABSENT TONE: 2 POINTS: PRESENT 0 POINTS: ABSENT AMNIOTIC FLUID VOLUME: 2 POINTS: LARGEST POCKET GREATER THAN 2 CM DEPTH. 0 POINTS: NO POCKET OF 2 CM. TECHNICAL DOCUMENTATION: JOB ID: [id number] [employer]- All Rights Reserved Reading location - IP/workstation name: [email or web address]
== END 2017-11-02 12:46 | disposition home or self-care (01) ==
LOC: LC 10:59
PROVIDERS: ATTEND Obstetrics & Gynecology Gynecology
DX: Z34.93 Encounter for supervision of normal pregnancy, unspecified, third trimester (principal)
CPT/HCPCS: 76819

== ENCOUNTER 2017-11-07 05:03 | Inpatient (IN) | payer MEDICAID ==
[2017-11-06 12:32] LABS: APPEARANCE,URINE CLEAR; BILIRUBIN,URINE NEGATIVE (NEGATIVE); COLOR,URINE STRAW; GLUCOSE, URINE NEGATIVE (NEGATIVE); KETONES,URINE NEGATIVE (NEGATIVE); LEUKOCYTE ESTERASE,URINE NEGATIVE (NEGATIVE); NITRITE,URINE NEGATIVE (NEGATIVE); PROTEIN,URINE NEGATIVE (NEGATIVE); URINE SPECIFIC GRAVITY 1.002; UROBILINOGEN,URINE NEGATIVE mg/dL (<2.0)
[2017-11-06 12:57] LABS: URINE AMPHETAMINES SCREEN NEGATIVE; URINE BARBITURATES SCREEN NEGATIVE; URINE BENZODIAZEPINES SCREEN NEGATIVE; URINE COCAINE SCREEN NEGATIVE; URINE MARIJUANA (THC) SCREEN NEGATIVE; URINE PHENCYCLIDINE SCREEN NEGATIVE
[2017-11-06 13:32] LABS: ABSOLUTE LYMPHOCYTES (AUTO) 1.9 10^3/uL (0.5-4.7); ABSOLUTE MONOCYTES (AUTO) 0.9 10^3/uL (0.1-1.4); ABSOLUTE NEUT (AUTO) 9.3 10^3/uL (1.7-8.2); BASOPHILS % (AUTO) 0.2 % (0-2); EOSINOPHILS % (AUTO) 0.3 % (0-6); MEAN CORPUSCULAR HGB CONC 35.3 g/dL (32.0-36.0); MEAN CORPUSCULAR VOLUME 88 fl (80-97); MONOCYTES % (AUTO) 7.2 % (3-13); PLATELET COUNT 182 10^3/uL (150-450); RED BLOOD COUNT 3.53 10^6/uL (3.72-5.28); RED CELL DISTRIBUTION WIDTH 13.1 % (11.5-14.0); SEGMENTED NEUTROPHILS % (AUTO) 76.3 % (42-78); TOTAL CELLS COUNTED % (AUTO) 100 %; WHITE BLOOD COUNT 12.1 10^3/uL (4.0-10.5)
[2017-11-06 13:37] LABS: URINE METHADONE SCREEN UNCONFIRMED POSITIVE
[~2017-11-07 05:03] MED LIST: CEFAZOLIN SODIUM 2 GM in DEXTROSE 5%-WATER 100 ML IV PRN; LACTATED RINGERS 1000 ML IV PRN; LIDOCAINE 0.5% INJ-PF (5 MG/ML) 50 ML SDV SUBCUT PRN; METHADONE HCL 10 MG TABLET PO PRN; RINGERS SOLUTION,LACTATED 1,000 ML IV PRN
[2017-11-07] MEDS ORDERED: OXYTOCIN 10 UNIT/ML VIAL ONE (06:51)
[2017-11-07] MEDS ORDERED: OXYTOCIN/NORMAL SALINE 20 UNIT/1,000 ML RTUINJ ONE (06:52)
[2017-11-07] MEDS ORDERED: FENTANYL CITRATE INJ/PF 100 MCG/2 ML AMPUL ONE (06:52)
[2017-11-07] MEDS ORDERED: MIDAZOLAM 2 MG/2 ML INJ ONE (06:52)
[2017-11-07] MEDS ORDERED: EPHEDRINE SULFATE INJ 50 MG/1 ML AMPULE ONE (06:52)
[2017-11-07] MEDS ORDERED: ONDANSETRON HCL INJ/PF 4 MG/2 ML SDV ONE (06:52)
[2017-11-07] MEDS ORDERED: BUPIVACAINE HCL/DEX-WATER/PF 15 MG/2 ML AMPULE ONE (06:55)
[2017-11-07] MEDS ORDERED: TETRACAINE HCL/PF 20MG/2ML AMPULE (SPINAL) ONE (08:38)
[2017-11-07] MEDS ORDERED: PROMETHAZINE HCL INJ 25 MG/1 ML VIAL IV PRN ×2 (09:18→09:28)
[2017-11-07] MEDS ORDERED: MEPERIDINE HCL/PF INJ 25 MG/1 ML DISP.SYRIN IV PRN (09:18)
[2017-11-07] MEDS ORDERED: DIPHENHYDRAMINE HCL 50 MG/ML VIAL IV PRN (09:18)
[2017-11-07] MEDS ORDERED: FENTANYL CITRATE INJ/PF 100 MCG/2 ML AMPUL IV PRN ×3 (09:18)
[2017-11-07] MEDS ORDERED: MORPHINE SULFATE 10 MG/ML INJ IM PRN (09:28)
[2017-11-07] MEDS ORDERED: ACETAMINOPHEN 325 MG TABLET PO PRN (09:28)
[2017-11-07] MEDS ORDERED: DIPH/PERTUSS(ACELL)/TETANUS VAC/PF 0.5 ML SYR (>=10YO) IM PRN (09:28)
[2017-11-07] MEDS ORDERED: OXYTOCIN/NORMAL SALINE 20 UNIT/1,000 ML RTUINJ IV PRN (09:28)
[2017-11-07] MEDS ORDERED: MEASLES,MUMPS&RUBELLA VACC/PF 0.5 ML VIAL SUBCUT PRN (09:28)
--- NOTE | 2017-11-07 09:39 | OPERATIVE REPORT E ---
Operative Report NAME: JOHN BANEGAS : 1990 AGE: 27Y DATE OF SURGERY: 11/07/2017 ROOM: 212 PREOPERATIVE DIAGNOSIS: IUP AT TERM WITH TWINS. POSTOPERATIVE DIAGNOSIS: IUP AT TERM WITH TWINS WITH BREECH PRESENTATION. OPERATION: Primary low transverse , with delivery of 2 females. Apgars of A were 9 and 9; Apgars of B were 8 and 9. Weights are pending. SURGEON: Palmer MERCEDES M.D. ANESTHESIA: Spinal. TISSUE REMOVED OR ALTERED: Placentas. PROCEDURE: Patient was placed in a supine position, rolled onto the right side, prepped and draped in sterile fashion. Pfannenstiel incision was made. The incision extended through subcutaneous tissue and fascia. Tissue and fascia were divided. Rectus muscle bluntly and sharply divided. Parietal peritoneum was entered with sharp dissection. Uterus was nicked in midline. Twin A delivered from a perico breech by breech extraction. Nose and mouth suctioned with bulb syringe. Cord clamped and infant was passed from the table. B was then delivered. Again, it was perico breech. Breech extraction. Nose and mouth suctioned with bulb syringe. Cord was clamped. Infant was passed from the table. Placentas were manually extracted. Uterus closed in 2 layers; the first, a running stitch of 0 Vicryl; the second a Lembert stitch, imbricating the first layer. Hemostasis was noted. Fascia was closed with 0 Vicryl in running fashion, and the skin was closed with subcutaneous absorbable nilam. Her urine remained clear throughout the procedure. She was taken to recovery in good condition, and both infants to nursery in good condition. DICTATING PHYSICIAN: Palmer MERCEDES M.D. [id number] PHY#: [id number] ID: [id number] JOB#: [id number] ACCT: [id number] cc:Palmer MERCEDES M.D. >
[2017-11-07] MEDS: FENTANYL CITRATE INJ/PF 100 MCG/2 ML AMPUL ONE ×3 (09:40→11:12)
[2017-11-07] MEDS ORDERED: LORAZEPAM INJ 2 MG/1 ML VIAL ONE (09:44)
[2017-11-07] MEDS ORDERED: METHADONE HCL 1 MG/ML 30 ML BOTTLE PO SCH (10:00)
[2017-11-07] MEDS ORDERED: (PENDING PHARMACY ID) (Prenatal Vit No.129/Iron/Folic [Prenatal One Daily Tablet] 1 TAB) PO SCH (10:00)
[2017-11-07] MEDS: PRENATAL VITAMIN W DHA CAPSULE PO SCH (11:11)
[2017-11-07] MEDS: FERROUS SULFATE 325 MG TABLET PO SCH (11:11)
[2017-11-07] MEDS: DOCUSATE SODIUM 100 MG CAPSULE PO SCH ×2 (11:11→19:05)
[2017-11-07] MEDS ORDERED: MORPHINE SULFATE 10 MG/ML INJ ONE (12:21)
[2017-11-07] MEDS: IBUPROFEN 800 MG TABLET PO SCH ×2 (14:16→19:05)
[2017-11-07] MEDS: OXYCODONE-ACETAMINOPHEN 5-325 MG TABLET PO PRN ×2 (14:17→20:35)
[2017-11-07] MEDS: MORPHINE SULFATE 10 MG/ML INJ IV PRN ×2 (17:23→21:42)
[2017-11-08] MEDS: IBUPROFEN 800 MG TABLET PO SCH ×5 (01:00→23:54)
[2017-11-08 06:43] LABS: HEMATOCRIT 26.6 % (36.0-47.0); HEMOGLOBIN 9.3 g/dL (12.0-15.5); MEAN CORPUSCULAR HEMOGLOBIN 31.1 pg (27.0-33.4); MEAN CORPUSCULAR HGB CONC 35.1 g/dL (32.0-36.0); MEAN CORPUSCULAR VOLUME 89 fl (80-97); PLATELET COUNT 139 10^3/uL (150-450); RED CELL DISTRIBUTION WIDTH 13.3 % (11.5-14.0); WHITE BLOOD COUNT 10.9 10^3/uL (4.0-10.5)
[2017-11-08] MEDS: METHADONE HCL 10 MG TABLET PO SCH (08:19)
[2017-11-08] MEDS: SIMETHICONE 80 MG TAB.CHEW PO PRN ×2 (08:19→17:02)
[2017-11-08] MEDS: DOCUSATE SODIUM 100 MG CAPSULE PO SCH ×2 (09:16→17:03)
[2017-11-08] MEDS: PRENATAL VITAMIN W DHA CAPSULE PO SCH (09:16)
[2017-11-08] MEDS: FERROUS SULFATE 325 MG TABLET PO SCH (09:16)
--- NOTE | 2017-11-08 09:38 | PDOC PROGRESS REPORT ---
Subjective-OB Progress Note for:: 11/08/17 Subjective: s/p c/s day #1 Pt denies concerns, voiding without difficulty, lochia is stable, pain well controlled, passing gas, tolerating diet. Physical Exam (OB) Vital Signs: Temp Pulse Resp BP Pulse Ox 98.0 F 98 16 123/67 99 11/08/17 03:26 11/08/17 03:26 11/08/17 03:26 11/08/17 03:26 11/08/17 03:26 Pulse Oximeter Continuous Start: 11/07/17 12: 24 Freq: RTQ4 Status: Complete Document 11/07/17 20:00 SFL (Rec: 11/07/17 21:25 SFL [id number]) Pulse Oximetry Assessment Oxygen Saturation (92-100) 100 Oxygen Flow Rate (L/min) 2 Oxygen Delivery Method Nasal Cannula Equipment Usage Equipment in Use Continuous SpO2 Machine # 1 Intake & Output 11/07/17 11/08/17 11/09/17 06:59 06:59 06:59 Intake Total 4625 Output Total 3710 Balance 915 Weight 89.811 kg 88.8 kg - PIH/Pre-Eclampsia Clonus: Negative Headache: Absent Epigastric Pain: No Visual Changes: No - Dressing Removed: No Incision: Dressing Closure Type: Darnell - Lochia Lochia Amount: Scant < 10 ml Lochia Color: Rubra/Red - Abdomen Description: Tender, Soft, Round Hernia Present: No Fundal Description: Firm, Midline Fundal Height: u/u - u/2 Objective-Diagnostic Laboratory: 11/08/17 06:15 11/08/17 06:15 WBC 10.9 H RBC 3.00 L Hgb 9.3 L Hct 26.6 L MCV 89 MCH 31.1 MCHC 35.1 RDW 13.3 Plt Count 139 L Assessment and Plan(PN) - Assessment and Plan (1) delivery delivered Is this a current diagnosis for this admission?: Yes Plan: routine postop care (2) Twins, both liveborn Is this a current diagnosis for this admission?: Yes Plan: routine post op care (3) Methadone dependence Is this a current diagnosis for this admission?: Yes Plan: continue methadone has follow up with clinic - Time Spent with Patient Time with patient: Less than 15 minutes Critical Time spent with patient: Less than 15 minutes Medications reviewed and adjusted accordingly: Yes - Disposition Anticipated Discharge: Home Within: within 24 hours
[2017-11-09] MEDS: IBUPROFEN 800 MG TABLET PO SCH (05:51)
[2017-11-09] MEDS: METHADONE HCL 10 MG TABLET PO SCH (08:37)
[2017-11-09] MEDS: DOCUSATE SODIUM 100 MG CAPSULE PO SCH (09:57)
[2017-11-09] MEDS: PRENATAL VITAMIN W DHA CAPSULE PO SCH (09:58)
[2017-11-09] MEDS: SIMETHICONE 80 MG TAB.CHEW PO PRN (09:58)
[2017-11-09] MEDS: FERROUS SULFATE 325 MG TABLET PO SCH (09:58)
--- NOTE | 2017-11-09 10:32 | PDOC PROGRESS REPORT ---
Subjective-OB Progress Note for:: 11/09/17 Subjective: dooing well, in room holding baby, other baby getting hearing test, good pain relief with Motrin, + gas relieved with mylicon, voiding, eating well, mother at BS, good support at home, on Methadone 120 and hopes to decrease soon Physical Exam (OB) Vital Signs: Temp Pulse Resp BP Pulse Ox 98.6 F 95 16 124/72 99 11/09/17 08:21 11/09/17 08:21 11/09/17 08:21 11/09/17 08:21 11/09/17 08:21 Pulse Oximeter Continuous Start: 11/07/17 12: 24 Freq: RTQ4 Status: Complete Document 11/07/17 20:00 SFL (Rec: 11/07/17 21:25 SFL [id number]) Pulse Oximetry Assessment Oxygen Saturation (92-100) 100 Oxygen Flow Rate (L/min) 2 Oxygen Delivery Method Nasal Cannula Equipment Usage Equipment in Use Continuous SpO2 Machine # 1 Intake & Output 11/08/17 11/09/17 11/10/17 06:59 06:59 06:59 Intake Total 4625 750 Output Total 3710 Balance 915 750 Weight 88.8 kg - PIH/Pre-Eclampsia Clonus: Negative Headache: Absent Epigastric Pain: No Visual Changes: No - Dressing Removed: Yes Incision: Dressing Closure Type: Darnell - Lochia Lochia Amount: Scant < 10 ml Lochia Color: Rubra/Red - Abdomen Description: Tender, Soft Hernia Present: No Fundal Description: Firm, Midline Fundal Height: u/u - u/2 Objective-Diagnostic Laboratory: 11/08/17 06:15 Assessment and Plan(PN) - Assessment and Plan (1) Twin , delivered by section, current hospitalization Is this a current diagnosis for this admission?: Yes - Time Spent with Patient Time with patient: Less than 15 minutes Smoking Education Provided: Over 3 minutes Medications reviewed and adjusted accordingly: Yes - Disposition Anticipated Discharge: Home Within: Other - home today, staying as a margi due to breast feeding, Methadone clinic called and needs EKG done cause she has been on Methadone 120 during . Pt does not appear to be drowsy or sedated on 120 Methadone
--- NOTE | 2017-11-09 10:44 | PDOC DISCHARGE SUMMARY ---
Final Diagnosis Discharge Date: 11/09/17 - Final Diagnosis (1) Twin , delivered by section, current hospitalization Is this a current diagnosis for this admission?: Yes Discharge Data - Discharge Medication Prescriptions: Ferrous Sulfate [Iron] 325 mg PO DAILY #30 tablet Ibuprofen [Motrin 800 mg Tablet] 800 mg PO Q6 #60 tablet Home Medications: Vit No.129/Iron/Folic [ One Daily Tablet] 1 tab PO DAILY Ferrous Sulfate [Iron] 325 mg PO DAILY #30 tablet 11/09/17 Ibuprofen [Motrin 800 mg Tablet] 800 mg PO Q6 #60 tablet 11/09/17 Methadone HCl [Dolophine 10 mg Tablet] 155 mg PO QAM tablet 11/09/17 Vit/Dha [ Multi + Dha Capsule] 1 cap PO DAILY capsule Gestational Age: 37 Reason(s) for Admission: Ceasarean Section-Primary, Group B Strep Positive Procedures: NST, Ultrasound Intrapartum Procedure(s): : Low Cervical, Transverse Intrapartum Procedure Note: On Methadone - Diagnosis Test Laboratory: Temp Pulse Resp BP Pulse Ox 98.6 F 95 16 124/72 99 11/09/17 08:21 11/09/17 08:21 11/09/17 08:21 11/09/17 08:21 11/09/17 08:21 11/06/17 11/06/17 11/08/17 12:00 12:20 06:15 RBC 3.53 L 3.00 L Hgb 11.0 L 9.3 L Hct 31.0 L 26.6 L Urine Opiates Screen NEGATIVE - Discharge information/Instructions Discharge Activity: Activity As Tolerated, No Lifting Over 10 Pounds, No Lifting /Push/Pulling, Pelvic Rest Discharge Diet: As Tolerated Disposition: HOME, SELF-CARE Follow up with: [facility] in: 1, Weeks
[2017-11-09 10:51] VITALS: BP 117/69
--- NOTE | 2017-11-09 13:14 | EKG REPORT ---
SEVERITY:- NORMAL ECG - SINUS RHYTHM : Confirmed by: Anthony Cullen MD 09-Nov-2017 13:14:11
== END 2017-11-09 11:15 | disposition home or self-care (01) | DRG 765 ==
LOC: 2N 05:03
PROVIDERS: ADMIT Obstetrics & Gynecology Gynecology; ATTEND Obstetrics & Gynecology Gynecology
PROC: 10D00Z1 Extraction of Products of Conception, Low, Open Approach (ICD-10-PCS; principal; 2017-11-07 09:00)
DX: O32.1XX1 Maternal care for breech presentation, fetus 1 (principal); O99.324 Drug use complicating childbirth; F19.20 Other psychoactive substance dependence, uncomplicated; O30.043 Twin pregnancy, dichorionic/diamniotic, third trimester; O99.824 Streptococcus B carrier state complicating childbirth; Z3A.37 37 weeks gestation of pregnancy; Z37.2 Twins, both liveborn
CPT/HCPCS: 1961; 36415; 59025; 80307; 81001; 85025; 85027; 86850; 86870; 86900; 86901; 88307; 93005; 93010; 94762; 94799; J0690; J2060; J2250; J2270; J2405; J2590; J3010; J3490; J7120

== ENCOUNTER 2018-11-08 08:29 | Day surgery (SDC) | payer MEDICAID ==
[2018-11-07 10:31] LABS: HEMATOCRIT 35.5 % (36.0-47.0); HEMOGLOBIN 11.9 g/dL (12.0-15.5); MEAN CORPUSCULAR HEMOGLOBIN 28.1 pg (27.0-33.4); MEAN CORPUSCULAR HGB CONC 33.6 g/dL (32.0-36.0); MEAN CORPUSCULAR VOLUME 84 fl (80-97); PLATELET COUNT 212 10^3/uL (150-450); RED BLOOD COUNT 4.24 10^6/uL (3.72-5.28); RED CELL DISTRIBUTION WIDTH 13.6 % (11.5-14.0); WHITE BLOOD COUNT 5.9 10^3/uL (4.0-10.5)
[2018-11-07 10:34] LABS: APPEARANCE,URINE SLIGHTLY-CLOUDY; BILIRUBIN,URINE NEGATIVE (NEGATIVE); COLOR,URINE YELLOW; GLUCOSE, URINE NEGATIVE (NEGATIVE); KETONES,URINE NEGATIVE (NEGATIVE); LEUKOCYTE ESTERASE,URINE TRACE (NEGATIVE); NITRITE,URINE NEGATIVE (NEGATIVE); PROTEIN,URINE NEGATIVE (NEGATIVE); URINE SPECIFIC GRAVITY 1.025; UROBILINOGEN,URINE NEGATIVE mg/dL (<2.0)
[2018-11-08] MEDS ORDERED: FENTANYL CITRATE INJ/PF 100 MCG/2 ML AMPUL ONE (10:18)
[2018-11-08] MEDS ORDERED: MIDAZOLAM 2 MG/2 ML INJ ONE (10:18)
[2018-11-08] MEDS ORDERED: HYDROMORPHONE HCL INJ/PF 2 MG/ML AMPULE ONE (10:18)
[2018-11-08] MEDS ORDERED: LIDOCAINE 1%/EPINEPHRINE INJ 20 ML VIAL ONE (10:18)
[2018-11-08] MEDS ORDERED: PROPOFOL INJ 200 MG/20 ML VIAL IV ONE (10:19)
[2018-11-08] MEDS ORDERED: FAMOTIDINE INJ/PF 20 MG/2 ML SDV IV ONE (10:19)
[2018-11-08] MEDS ORDERED: ALBUTEROL SULFATE 0.083% NEB 2.5 MG/3 ML AMPUL NEB ONE (10:19)
[2018-11-08] MEDS ORDERED: ACETAMINOPHEN 1,000 MG/100 ML RTUPB IV ONE (10:19)
[2018-11-08] MEDS ORDERED: DIPHENHYDRAMINE HCL 50 MG/ML VIAL IV PRN (10:50)
[2018-11-08] MEDS ORDERED: PROMETHAZINE HCL INJ 25 MG/1 ML VIAL IV PRN (10:50)
[2018-11-08] MEDS ORDERED: RINGERS SOLUTION,LACTATED 1,000 ML IV PRN (11:24)
[2018-11-08] MEDS ORDERED: KETOROLAC TROMETHAMINE INJ/PF 30 MG/1 ML SDV IV PRN (11:24)
[2018-11-08] MEDS ORDERED: IBUPROFEN 800 MG TABLET PO PRN (11:24)
--- NOTE | 2018-11-08 11:24 | Operative Report ---
Operative Report DATE OF SURGERY: 11/08/18 PREOPERATIVE DIAGNOSIS: Patient desires surgical sterilization with laparoscopic tubal cautery POSTOPERATIVE DIAGNOSIS: Same OPERATION: Laparoscopic bilateral tubal fulguration with cautery SURGEON: BEST ZHOU ANESTHESIA: GA TISSUE REMOVED OR ALTERED: Fallopian tubes COMPLICATIONS: None ESTIMATED BLOOD LOSS: None INTRAOPERATIVE FINDINGS: Normal uterus tubes and ovaries PROCEDURE: Patient was taken the OR and placed in supine position. General anesthesia was induced. She is placed in a dorsolithotomy position using Dwaine stirrups. Her abdomen perineum and vagina were prepared and draped in sterile fashion. Her bladder was drained with a red rubber catheter. An incision was made at the umbilicus. The natural umbilical defect was identified and dilated with Magaly clamp allowing a blunt port to be placed. Laparoscopy confirmed appropriate placement. The abdomen was insufflated with CO2 gas. Each tube was identified followed out to its fimbriated end. Each tube was then cauterized at the mid isthmic portion moving back toward the uterine cornu with 5 successive bites using the Kleppinger bipolar cautery. At the end of the case the gas was allowed to escape from the abdomen. The port and scope were removed and Unasyn. The umbilicus was injected with lidocaine with epinephrine. The fascia was closed with a 2-0 Vicryl stitch. The skin was closed with a 4-0 undyed Vicryl stitch. Band-Aid was placed. The sponge stick was removed from the vagina. Patient was extubated in the OR and taken to recovery room stable condition.
--- NOTE | 2018-11-08 11:26 | Discharge Summary ---
Discharge Summary (SDC) - Discharge Final Diagnosis: Encounter for tubal ligation Date of Surgery: 11/08/18 Discharge Date: 11/08/18 Condition: Good Prescriptions: Ibuprofen [Motrin 800 mg Tablet] 800 mg PO NOW PRN #30 tablet PRN Reason: Discharge Diet: Regular Discharge Activity: Activity As Tolerated Home Care Assistance: None Needed
[2018-11-08 16:02] VITALS: BP 104/67
[2018-11-08] MEDS ORDERED: ROCURONIUM BROMIDE INJ 50 MG/5 ML VIAL IV ONE (21:13)
[2018-11-08] MEDS ORDERED: LIDOCAINE 2% INJ-PF (20 MG/ML) 2 ML AMPUL ONE (21:13)
[2018-11-08] MEDS ORDERED: SUCCINYLCHOLINE CHLORIDE INJ 200 MG/10 ML VIAL ONE (21:13)
[2018-11-08] MEDS ORDERED: DEXAMETHASONE SOD PHOSPHATE INJ 4 MG/1 ML VIAL ONE (21:13)
[2018-11-08] MEDS ORDERED: KETOROLAC TROMETHAMINE 60 MG/2 ML SDV ONE (21:13)
[2018-11-08] MEDS ORDERED: NEOSTIGMINE METHYLSULFATE 10 MG/10 ML VIAL ONE (21:13)
[2018-11-08] MEDS ORDERED: ONDANSETRON HCL INJ/PF 4 MG/2 ML SDV ONE (21:13)
[2018-11-08] MEDS ORDERED: GLYCOPYRROLATE 1 MG/5 ML SYRINGE ONE (21:13)
== END 2018-11-08 13:25 | disposition home or self-care (01) ==
LOC: OROUT 08:29
PROVIDERS: ATTEND Obstetrics & Gynecology
DX: Z30.2 Encounter for sterilization (principal)
CPT/HCPCS: 36415; 85027; 81005; 81025; 58670; J2250; J3490 ×4; J1100; J1885; J3010; J2710; J1170; J0330; J2405; J2704; S0028; J0131; 851